=== PATIENT | female | born 1965 | race American Indian/Alaskan Native ===

== ENCOUNTER 2019-01-21 08:56 | Outpatient (CLI) | payer MEDICARE, OTHER ==
[2019-01-21 09:30] LABS: Hemoglobin 11.2 gm/dl (10.1-14.3); Mean Corpuscular HGB Conc 33 % (30-34); Mean Corpuscular Hemoglobin 27 pg (28-32); Mean Corpuscular Volume 80 fl (79-97); Platelet Count 181 K/mm3 (140-440); Red Blood Count 4.24 M/mm3 (3.65-5.03)
[2019-01-21 09:54] LABS: Alanine Aminotransferase 20 units/L (7-56); Albumin 3.3 g/dL (3.9-5); BUN/Creatinine Ratio 9; Blood Urea Nitrogen 7 mg/dL (7-17); Calcium 8.9 mg/dL (8.4-10.2); Chol/HDL Ratio 3.39 %; HDL Cholesterol 56 mg/dL (40-59); Hemolysis Index 2; LDL Cholesterol,Direct 129 mg/dL (50-130)
--- NOTE | 2019-01-21 12:01 | Cat Scan Report ---
CT CHEST WITH CONTRAST INDICATION : Lung abscess. TECHNIQUE: 100 mL of intravenous contrast administered. All CT scans at this location are performed using CT dose reduction for ALARA by means of automated exposure control. COMPARISON: None at this facility FINDINGS: The thyroid gland, tracheobronchial tree, esophagus, heart, pericardium and mediastinal ve ssels are unremarkable. There are a few borderline to mildly enlarged lymph nodes in the mediastinum. A 1.9 x 1.5 cm lymph node is identified along the right side of the distal esophagus. There are 3 ly mph nodes along the right heart border with the largest measuring 1.9 x 1.3 cm. There are 3 lymph nod es in the anterior mediastinum measuring up to 1.5 x 1.4 cm. The lungs are adequately aerated. No underlying parenchymal lung disease identified. There is mild li near scarring or atelectasis in the subpleural right upper lobe and right lobe lower lobe. No evidenc e for mass, infiltrate or abscess. No pleural fluid collection or pneumothorax. No suspicious bony le zackary or fracture is identified. Small Bochdalek hernia containing fat is noted in the posterior left hemidiaphragm. Limited images of the upper abdomen demonstrate a hypoplastic left hepatic lobe. There are 3 or 4 foc i of enhancement near the dome of the right hepatic lobe measuring up to 1 cm. I suspect these repres ent small cavernous hemangiomas although they are incompletely evaluated on this exam. Four-phase [place] er CT with contrast or MR abdomen with contrast could be obtained to further evaluate if needed. IMPRESSION: No evidence for lung abscess. Minor linear scarring or atelectasis in the right lung as described. Slightly suspicious mediastinal lymph nodes as outlined above of uncertain etiology. Consider follow- up. Neoplastic process cannot be excluded. Small foci of enhancement in this superior right hepatic lobe. See above. Signer Name: Jim Zuniga Jr, MD Signed: 01/21/2019 10:56 AM Workstation Name: [id number]
== END 2019-01-21 08:57 | disposition home or self-care (01) ==
LOC: CT 08:56
PROVIDERS: ATTEND Internal Medicine
DX: J98.11 Atelectasis (principal); K46.9 Unspecified abdominal hernia without obstruction or gangrene; R59.9 Enlarged lymph nodes, unspecified; R79.89 Other specified abnormal findings of blood chemistry
CPT/HCPCS: 36415; 36600; 71260; 80053; 80061; 82803; 84436; 84443; 85027; Q9967

== ENCOUNTER 2019-02-07 07:19 | Outpatient (CLI) | payer MEDICARE, OTHER ==
[2019-02-07 08:05] LABS: BUN/Creatinine Ratio 12; Blood Urea Nitrogen 11 mg/dL (7-17); Calcium 9.6 mg/dL (8.4-10.2); Hemolysis Index 20
--- NOTE | 2019-02-07 09:04 | Vascular Lab Report ---
DUPLEX DOPPLER LOWER EXTREMITY VEINS, BILATERAL INDICATION: Bilateral lower extremity swelling for 2 weeks.. TECHNIQUE: Duplex doppler imaging was performed through the veins of both lower extremities using venous arleth zackary and other maneuvers. COMPARISON: None available. FINDINGS: Right Common femoral vein: Negative. Right Superficial femoral vein: Negative. Right Popliteal vein: Negative. Right Calf veins: Negative. Left Common femoral vein: Negative. Left Superficial femoral vein: Negative. Left Popliteal vein: Negative. Left Calf veins: Negative. Additional findings: There is no evidence of a popliteal cyst or other significant abnormality. IMPRESSION: No sonographic evidence for DVT in either lower extremity. Signer Name: Sanjay Alamo MD Signed: 02/07/2019 9:00 AM Workstation Name: [id number]
--- NOTE | 2019-02-07 09:55 | Cat Scan Report ---
CTA CHEST WITH CONTRAST INDICATION : Chest pain and shortness of breath. TECHNIQUE: Axial imaging performed through the chest, with contrast bolus timing set to maximize opa cification of the pulmonary arteries. Sagittal and coronal reformatted images. 3-plane MIP reformatte d images were obtained. All CT scans at this location are performed using CT dose reduction for ALAR A by means of automated exposure control. Omnipaque 350 100 mL of intravenous contrast administered. COMPARISON: CT chest with contrast dated 01/21/2019 FINDINGS: Bolus: Contrast bolus is slightly limited. The central pulmonary arteries are adequately opacified. The distal, small pulmonary arteries are poorly opacified. PTE: A few small but slightly suspicious pulmonary arterial lung defects are identified in the right upper lobe on image 47, in the left upper lobe on image 58 and the left lower lobe on image 75. Sma ll bilateral pulmonary emboli cannot be excluded. Mediastinum: Heart size is within normal limits. No pericardial abnormality. The thoracic aorta is w ithin normal limits. Borderline to mildly enlarged mediastinal lymph nodes are again noted and uncha nged. Lungs: There is minor linear scarring or atelectasis in the right upper lobe and right lower lobe, o therwise, the lungs are clear. Small Bochdalek hernia containing fat on the left side is noted. No pl eural effusion or pneumothorax. Bones: Degenerative changes in the spine with nothing acute. Upper abdomen: Limited imaging of the upper abdomen shows nothing acute. IMPRESSION: Somewhat limited examination due to poor timing of the contrast bolus . Small bilateral pulmonary emb laron are suspected. Please see above. Linear scarring or atelectasis in the right lung. No change in the slightly suspicious mediastinal lymph nodes. The ordering physician, Dr. Johnson, was paged [phone] EST to be notified of these findings. Signer Name: Jim Zuniga Jr, MD Signed: 02/07/2019 9:50 AM Workstation Name: [id number]
--- NOTE | 2019-02-07 17:59 | History and Physical Report ---
History of Present Illness Date of examination: 02/07/19 Medications and Allergies Allergies Allergy/AdvReac Type Severity Reaction Status Date / Time banana Allergy Itching Verified 02/07/19 16:01 dipyridamole Allergy Rash Verified 02/07/19 16:01 [From Persantine] Sulfa (Sulfonamide Allergy Itching/JADE Verified 02/07/19 16:01 Antibiotics) H HEART DYE Allergy Rash Uncoded 02/07/19 13:42 Results - Labs CBC & Chem 7: 02/07/19 07:41 Labs: Laboratory Last Values 884.12 ng/mlDDU (0-234) H 02/07/19 07:41 Sodium 140 mmol/L (137-145) 02/07/19 07:41 Potassium 4.2 mmol/L (3.6-5.0) 02/07/19 07:41 Chloride 99.6 mmol/L (98-107) 02/07/19 07:41 Carbon Dioxide 28 mmol/L (22-30) 02/07/19 07:41 17 mmol/L 02/07/19 07:41 BUN 11 mg/dL (7-17) 02/07/19 07:41 0.9 mg/dL (0.7-1.2) 02/07/19 07:41 Estimated GFR > 60 ml/min 02/07/19 07:41 12 % 02/07/19 07:41 Glucose 147 mg/dL (65-100) H 02/07/19 07:41 Calcium 9.6 mg/dL (8.4-10.2) 02/07/19 07:41 - Imaging and Cardiology Imaging and Cardiology: CTA chest IMPRESSION: Somewhat limited examination due to poor timing of the contrast bolus . Small bilateral pulmonary emboli are suspected. Please see above. Linear scarring or atelectasis in the right lung. No change in the slightly suspicious mediastinal lymph nodes.
== END 2019-02-07 07:20 | disposition home or self-care (01) ==
LOC: CT 07:19
PROVIDERS: ATTEND Internal Medicine
DX: J98.11 Atelectasis (principal); Q79.0 Congenital diaphragmatic hernia; R22.43 Localized swelling, mass and lump, lower limb, bilateral; E03.9 Hypothyroidism, unspecified
CPT/HCPCS: 36415; 71275; 80048; 82164; 85379; 93970; Q9967

== ENCOUNTER 2019-02-07 13:40 | Inpatient (IN) | payer MEDICARE, OTHER ==
--- NOTE | 2019-02-07 14:49 | Emergency Department Report ---
ED Shortness of Breath HPI - General Chief Complaint: Dyspnea/Respdistress Stated Complaint: SENT Time Seen by Provider: 02/07/19 14:42 Source: patient Mode of arrival: Ambulatory Limitations: No Limitations - History of Present Illness Initial Comments: Patient is a 53-year-old female that presents to emergency room with complaints of a positive CTA for PE. Patient states short of breath for about a year and her dent remover order a CTA and it was done this morning at the outpatient center and she was called to come here for evaluation and treatment for a PE. MD Complaint: shortness of breath -: Gradual, year(s) Severity: severe Consistency: constant Improves With: rest Worsens With: exertion Associated Symptoms: denies other symptoms Treatments Prior to Arrival: none - Related Data Home Oxygen Therapy: No Allergies Allergy/AdvReac Type Severity Reaction Status Date / Time banana Allergy Itching Verified 02/07/19 16:01 dipyridamole Allergy Rash Verified 02/07/19 16:01 [From Persantine] Sulfa (Sulfonamide Allergy Itching/JADE Verified 02/07/19 16:01 Antibiotics) H HEART DYE Allergy Rash Uncoded 02/07/19 13:42 ED Review of Systems ROS: Stated complaint: SENT Other details as noted in HPI Constitutional: denies: chills, fever Eyes: denies: eye pain, eye discharge, vision change ENT: denies: ear pain, throat pain Respiratory: shortness of breath. denies: cough, wheezing Cardiovascular: dyspnea on exertion. denies: chest pain, palpitations Endocrine: no symptoms reported Gastrointestinal: denies: abdominal pain, nausea, diarrhea Genitourinary: denies: urgency, dysuria, discharge Musculoskeletal: denies: back pain, joint swelling, arthralgia Skin: denies: rash, lesions Neurological: denies: headache, weakness, paresthesias Psychiatric: denies: anxiety, depression Hematological/Lymphatic: denies: easy bleeding, easy bruising ED Past Medical Hx - Past Medical History Previous Medical History?: Yes Additional medical history: hypothyroidism - Surgical History Past Surgical History?: Yes Hx Cholecystectomy: Yes Additional Surgical History: partial hysterectomy - Family History Family history: no significant - Social History Smoking Status: Never Smoker Substance Use Type: None ED Physical Exam - General Limitations: No Limitations General appearance: alert, in no apparent distress - Head Head exam: Present: atraumatic, normocephalic - Eye Eye exam: Present: normal appearance - ENT ENT exam: Present: mucous membranes moist - Neck Neck exam: Present: normal inspection - Respiratory Respiratory exam: Present: normal lung sounds bilaterally. Absent: respiratory distress - Cardiovascular Cardiovascular Exam: Present: regular rate, normal rhythm. Absent: systolic murmur, diastolic murmur, rubs, gallop - GI/Abdominal GI/Abdominal exam: Present: soft, normal bowel sounds - Extremities Exam Extremities exam: Present: normal inspection - Back Exam Back exam: Present: normal inspection - Neurological Exam Neurological exam: Present: alert, oriented X3 - Psychiatric Psychiatric exam: Present: normal affect, normal mood - Skin Skin exam: Present: warm, dry, intact, normal color. Absent: rash ED Course Vital Signs 02/07/19 02/07/19 02/07/19 13:53 18:16 19:18 Temperature 98.7 F Pulse Rate 108 H 100 H 93 H Respiratory 20 19 22 Rate Blood Pressure 129/88 Blood Pressure 112/81 139/83 [Right] O2 Sat by Pulse 96 99 97 Oximetry - Reevaluation(s) Reevaluation #1: Discussed all results with patient. Patient will be admitted to the hospitalist service. Patient agrees with plan of care 02/07/19 15:54 Heparin drip ordered. 02/07/19 16:00 - Consultations Consultation #1: Hospitalist consulted for admission. Hospitalist to the patient and assumed care of patient. Bridging orders place. 02/07/19 15:54 ED Medical Decision Making - Lab Data Result diagrams: 02/07/19 16:13 02/07/19 14:59 - EKG Data -: EKG Interpreted by Nv EKG shows normal: sinus rhythm, axis, intervals, QRS complexes, ST-T waves Rate: normal - Radiology Data Radiology results: report reviewed CTA results. IMPRESSION: Somewhat limited examination due to poor timing of the contrast bolus . Small bilateral pulmonary emboli are suspected. Please see above. Linear scarring or atelectasis in the right lung. No change in the slightly suspicious mediastinal lymph nodes. - Medical Decision Making Patient is a 53-year-old female just emergency room for treatment of a PE. Patient had a CTA as an outpatient and her doctor sent her here for evaluation and treatment. Patient placed on a heparin drip. Patient's last unremarkable. - Differential Diagnosis PE. Shortness of breath. Critical Care Time: Yes Critical care attestation.: If time is entered above; I have spent that time in minutes in the direct care of this critically ill patient, excluding procedure time. Critical Care Time: 45 minutes ED Disposition Clinical Impression: SOB (shortness of breath) Pulmonary embolism Qualifiers: Pulmonary embolism type: unspecified Chronicity: acute Acute cor pulmonale presence: without acute cor pulmonale Qualified Code(s): I26.99 - Other pulmonary embolism without acute cor pulmonale Disposition: 09 OP ADMIT IP TO THIS HOSP Is pt being admited?: Yes Does the pt Need Aspirin: No Condition: Critical Time of Disposition: 15:56
[2019-02-07 15:12] LABS: Hematocrit 37.2 % (30.3-42.9); Hemoglobin 12.2 gm/dl (10.1-14.3); Mean Corpuscular HGB Conc 33 % (30-34); Mean Corpuscular Hemoglobin 27 pg (28-32); Mean Corpuscular Volume 81 fl (79-97); Platelet Count 239 K/mm3 (140-440); Red Blood Count 4.58 M/mm3 (3.65-5.03); Red Cell Distribution Width 18.7 % (13.2-15.2)
[2019-02-07 15:32] LABS: Creatine Kinase MB 1.7 ng/mL (0.0-4.0)
[2019-02-07 15:33] LABS: Alanine Aminotransferase 30 units/L (7-56); Albumin 3.7 g/dL (3.9-5); BUN/Creatinine Ratio 14; Blood Urea Nitrogen 11 mg/dL (7-17); Calcium 9.1 mg/dL (8.4-10.2); Hemolysis Index 89
[2019-02-07] MEDS ORDERED: HEPARIN 10,000 UNITS/10 ML IV ONE (15:57)
[2019-02-07 16:19] LABS: Hematocrit 37.5 % (30.3-42.9); Hemoglobin 12.3 gm/dl (10.1-14.3)
[2019-02-07 16:30] LABS: INR 1.09 (0.87-1.13)
[2019-02-07 16:31] LABS: Partial Thromboplastin Time 22.4 Sec. (24.2-36.6)
[2019-02-07] MEDS: HEPARIN/ 0.45% NACL-25,000 UNIT/500 ML 25,000 UNIT/500 ML BAG IV SCH (16:40)
[2019-02-07] MEDS ORDERED: FLEXERIL PO PRN (23:32)
--- NOTE | 2019-02-07 23:38 | History and Physical Report ---
History of Present Illness Date of examination: 02/07/19 Date of admission: 02/07/19 16:01 Chief complaint: Shortness of breath for 2 weeks History of present illness: 53-year-old female that presents to emergency room with complaints of a positive CTA for PE. Patient states short of breath for about a year and her framework developer order a CTA and it was done this morning at the outpatient center and she was called to come here for evaluation and treatment for a PE. Patient has been in shortness of breath for last couple weeks especially on exertion. No cough. No fever or chills. No recent travel. Past Medical History Previous Medical History?: Yes Additional medical history: hypothyroidism Surgical History Past Surgical History?: Yes Hx Cholecystectomy: Yes Additional Surgical History: partial hysterectomy Family History Family history: no significant Social History Smoking Status: Never Smoker Substance Use Type: None Review of Systems ROS: Stated complaint: DR SENT Other details as noted in HPI Constitutional: denies: chills, fever Eyes: denies: eye pain, eye discharge, vision change ENT: denies: ear pain, throat pain Respiratory: shortness of breath. denies: cough, wheezing Cardiovascular: dyspnea on exertion. denies: chest pain, palpitations Endocrine: no symptoms reported Gastrointestinal: denies: abdominal pain, nausea, diarrhea Genitourinary: denies: urgency, dysuria, discharge Musculoskeletal: denies: back pain, joint swelling, arthralgia Skin: denies: rash, lesions Neurological: denies: headache, weakness, paresthesias Psychiatric: denies: anxiety, depression Hematological/Lymphatic: denies: easy bleeding, easy bruising Medications and Allergies Allergies Allergy/AdvReac Type Severity Reaction Status Date / Time banana Allergy Itching Verified 02/07/19 16:01 dipyridamole Allergy Rash Verified 02/07/19 16:01 [From Persantine] Sulfa (Sulfonamide Allergy Itching/JADE Verified 02/07/19 16:01 Antibiotics) H HEART DYE Allergy Rash Uncoded 02/07/19 13:42 Home Medications Medication Instructions Recorded Confirmed Last Taken Type Cyclobenzaprine [Flexeril 10 MG 10 mg PO QHS 02/07/19 02/07/19 Unknown History TAB] Levothyroxine Sodium [Synthroid] 137 mcg PO QAM 02/07/19 02/07/19 Unknown History Active Meds: Active Medications Cyclobenzaprine HCl (Flexeril) 10 mg PO TID PRN PRN Reason: Muscle Spasm Heparin Sodium/Sodium Chloride (Heparin/ 0.45% Nacl-25,000 Unit/500 Ml) 25,000 unit in 500 mls @ 30 mls/hr IV TITR SHERYL; Protocol Last Admin: 02/07/19 16:40 Dose: 1,500 units/hr, 30 mls/hr Documented by: Exam - Constitutional Vitals: Temp Pulse Resp BP Pulse Ox 98.7 F 93 H 26 H 125/82 99 02/07/19 13:53 02/07/19 20:00 02/07/19 20:00 02/07/19 21:00 02/07/19 21:00 General appearance: Present: mild distress, well-nourished - EENT Eyes: Present: PERRL ENT: hearing intact, clear oral mucosa - Neck Neck: Present: supple, normal ROM - Respiratory Respiratory effort: normal Respiratory: bilateral: CTA - Cardiovascular Heart rate: 86 Rhythm: regular Heart Sounds: Present: S1 & S2. Absent: rub, click - Extremities Extremities: no ischemia, pulses intact, pulses symmetrical, No edema Peripheral Pulses: within normal limits - Abdominal General gastrointestinal: Present: soft, non-tender, non-distended, normal bowel sounds Female genitourinary: Present: normal - Rectal Rectal Exam: deferred - Integumentary Integumentary: Present: clear, warm, dry - Musculoskeletal Musculoskeletal: gait normal, strength equal bilaterally - Psychiatric Psychiatric: appropriate mood/affect, intact judgment & insight - Neurologic Neurologic: CNII-XII intact, moves all extremities - Allied Health Allied health notes reviewed: nursing, case management Results - Labs CBC & Chem 7: 02/07/19 16:13 02/07/19 14:59 Labs: Laboratory Last Values WBC 7.7 K/mm3 (4.5-11.0) 02/07/19 14:59 RBC 4.58 M/mm3 (3.65-5.03) 02/07/19 14:59 Hgb 12.3 gm/dl (10.1-14.3) 02/07/19 16:13 Hct 37.5 % (30.3-42.9) 02/07/19 16:13 MCV 81 fl (79-97) 02/07/19 14:59 MCH 27 pg (28-32) L 02/07/19 14:59 MCHC 33 % (30-34) 02/07/19 14:59 RDW 18.7 % (13.2-15.2) H 02/07/19 14:59 Plt Count 247 K/mm3 (140-440) 02/07/19 16:13 PT 13.8 Sec. (12.2-14.9) 02/07/19 16:13 INR 1.09 (0.87-1.13) 02/07/19 16:13 APTT 22.4 Sec. (24.2-36.6) L 02/07/19 16:13 Sodium 138 mmol/L (137-145) 02/07/19 14:59 Potassium 3.8 mmol/L (3.6-5.0) 02/07/19 14:59 Chloride 99.2 mmol/L (98-107) 02/07/19 14:59 Carbon Dioxide 26 mmol/L (22-30) 02/07/19 14:59 17 mmol/L 02/07/19 14:59 BUN 11 mg/dL (7-17) 02/07/19 14:59 0.8 mg/dL (0.7-1.2) 02/07/19 14:59 Estimated GFR > 60 ml/min 02/07/19 14:59 14 % 02/07/19 14:59 Glucose 109 mg/dL (65-100) H 02/07/19 14:59 Calcium 9.1 mg/dL (8.4-10.2) 02/07/19 14:59 0.30 mg/dL (0.1-1.2) 02/07/19 14:59 AST 54 units/L (5-40) H 02/07/19 14:59 ALT 30 units/L (7-56) 02/07/19 14:59 174 units/L (35-129) H 02/07/19 14:59 134 units/L (30-135) 02/07/19 14:59 CK-MB (CK-2) 1.7 ng/mL (0.0-4.0) 02/07/19 14:59 CK-MB (CK-2) Rel Index 1.2 (0-4) 02/07/19 14:59 < 0.010 ng/mL (0.00-0.029) 02/07/19 14:59 8.3 g/dL (6.3-8.2) H 02/07/19 14:59 3.7 g/dL (3.9-5) L 02/07/19 14:59 0.8 % 02/07/19 14:59 Short CBC 02/07/19 02/07/19 Range/Units 14:59 16:13 WBC 7.7 (4.5-11.0) K/mm3 Hgb 12.2 12.3 (10.1-14.3) gm/dl Hct 37.2 37.5 (30.3-42.9) % Plt Count 239 247 (140-440) K/mm3 BMP 02/07/19 14:59 Sodium 138 Potassium 3.8 Chloride 99.2 Carbon Dioxide 26 BUN 11 Creatinine 0.8 Glucose 109 H Calcium 9.1 Cardiac Enzymes 02/07/19 Range/Units 14:59 Total Creatine Kinase 134 (30-135) units/L CK-MB (CK-2) 1.7 (0.0-4.0) ng/mL Troponin T < 0.010 (0.00-0.029) ng/mL Liver Function 02/07/19 Range/Units 14:59 Total Bilirubin 0.30 (0.1-1.2) mg/dL AST 54 H (5-40) units/L ALT 30 (7-56) units/L Alkaline Phosphatase 174 H (35-129) units/L Albumin 3.7 L (3.9-5) g/dL - Imaging and Cardiology EKG: report reviewed (sinus rhythm heart rate of 95 per minute nonspecific IVCD nonspecific T-wave abnormalities) CT scan - chest: report reviewed Imaging and Cardiology: CT angiogram of the chest Bilateral pulmonary embolism IMPRESSION: Somewhat limited examination due to poor timing of the contrast bolus . Small bilateral pulmonary emboli are suspected. Please see above. Linear scarring or atelectasis in the right lung. No change in the slightly suspicious mediastinal lymph nodes. The ordering physician, Dr. Johnson, was paged [phone] EST to be notified of these findings. Assessment and Plan Advance Directives: Yes (full code) VTE prophylaxis?: Chemical Plan of care discussed with patient/family: Yes - Patient Problems (1) Pulmonary embolism Current Visit: Yes Status: Acute Qualifiers: Pulmonary embolism type: unspecified Chronicity: acute Acute cor pulmonale presence: without acute cor pulmonale Qualified Code(s): I26.99 - Other pulmonary embolism without acute cor pulmonale Plan to address problem: Patient initiated on IV heparin Primary team to decide on ELIQUIS or Coumadin (2) Hypothyroidism (acquired) Current Visit: Yes Status: Chronic (3) DVT prophylaxis Current Visit: Yes Status: Acute Plan to address problem: Patient on IV heparin and GI prophylaxis
--- NOTE | 2019-02-08 17:30 | Progress Note ---
Assessment and Plan Assessment and plan: Acute bilateral pulmonary embolism Started Heparin drip Consult Pulmonology Hypothyroidism Continue Synthroid Morbid obesity I counseled her on diet and exercise to lose weight full code status. History Interval history: Shortness of breath Hospitalist Physical - Physical exam Narrative exam: Gen: Not in acute distress, lying in bed, morbidly obese HEENT: Normocephalic, atraumatic Neck: supple, no JVD Heart: S1 and S2 reg, no murmurs, rubs or gallop Lungs: Clear to auscultation, no wheeze, no crackles Abd: soft, non tender, non distended, normal BS Ext: No edema, no clubbing, no cyanosis Neuro:Awake,Alert, Oriented X 3. No focal signs - Constitutional Vitals: Temp Pulse Resp BP Pulse Ox 97.5 F L 89 20 129/79 97 02/08/19 11:24 02/08/19 11:24 02/08/19 11:24 02/08/19 11:24 02/08/19 11:24 General appearance: Present: mild distress, well-nourished Results - Labs CBC & Chem 7: 02/07/19 16:13 02/07/19 14:59 Labs: Laboratory Last Values WBC 7.7 K/mm3 (4.5-11.0) 02/07/19 14:59 RBC 4.58 M/mm3 (3.65-5.03) 02/07/19 14:59 Hgb 12.3 gm/dl (10.1-14.3) 02/07/19 16:13 Hct 37.5 % (30.3-42.9) 02/07/19 16:13 MCV 81 fl (79-97) 02/07/19 14:59 MCH 27 pg (28-32) L 02/07/19 14:59 MCHC 33 % (30-34) 02/07/19 14:59 RDW 18.7 % (13.2-15.2) H 02/07/19 14:59 Plt Count 247 K/mm3 (140-440) 02/07/19 16:13 PT 13.8 Sec. (12.2-14.9) 02/07/19 16:13 INR 1.09 (0.87-1.13) 02/07/19 16:13 APTT 22.4 Sec. (24.2-36.6) L 02/07/19 16:13 Heparin Anti-Xa Level 0.41 U.I./ml (0.3-0.7) 02/08/19 15:29 Sodium 138 mmol/L (137-145) 02/07/19 14:59 Potassium 3.8 mmol/L (3.6-5.0) 02/07/19 14:59 Chloride 99.2 mmol/L (98-107) 02/07/19 14:59 Carbon Dioxide 26 mmol/L (22-30) 02/07/19 14:59 17 mmol/L 02/07/19 14:59 BUN 11 mg/dL (7-17) 02/07/19 14:59 0.8 mg/dL (0.7-1.2) 02/07/19 14:59 Estimated GFR > 60 ml/min 02/07/19 14:59 14 % 02/07/19 14:59 Glucose 109 mg/dL (65-100) H 02/07/19 14:59 Calcium 9.1 mg/dL (8.4-10.2) 02/07/19 14:59 0.30 mg/dL (0.1-1.2) 02/07/19 14:59 AST 54 units/L (5-40) H 02/07/19 14:59 ALT 30 units/L (7-56) 02/07/19 14:59 174 units/L (35-129) H 02/07/19 14:59 134 units/L (30-135) 02/07/19 14:59 CK-MB (CK-2) 1.7 ng/mL (0.0-4.0) 02/07/19 14:59 CK-MB (CK-2) Rel Index 1.2 (0-4) 02/07/19 14:59 < 0.010 ng/mL (0.00-0.029) 02/07/19 14:59 8.3 g/dL (6.3-8.2) H 02/07/19 14:59 3.7 g/dL (3.9-5) L 02/07/19 14:59 0.8 % 02/07/19 14:59 Active Medications - Current Medications Current Medications: Generic Name Dose Route Start Last Admin Trade Name Freq PRN Reason Stop Dose Admin Cyclobenzaprine HCl 10 mg 02/07/19 23:32 02/08/19 00:20 Flexeril PO 10 mg TID PRN Administration Muscle Spasm Heparin Sodium/Sodium Chloride 25,000 unit in 500 mls @ 30 mls/hr 02/07/19 16:30 02/08/19 09:06 Heparin/ 0.45% Nacl-25,000 Unit/500 Ml IV 1,200 units/hr TITR SHERYL 24 mls/hr Titration Protocol 1,500 UNITS/HR
[2019-02-09 04:10] LABS: Hematocrit 35.5 % (30.3-42.9); Hemoglobin 11.5 gm/dl (10.1-14.3)
[2019-02-09] MEDS ORDERED: NON-FORMULARY (Levothyroxine Sodium [Synthroid] 137 MCG) PO SCH (11:00)
--- NOTE | 2019-02-09 12:37 | Progress Note ---
Assessment and Plan Assessment and plan: Acute bilateral pulmonary embolism Continue Heparin drip oxygen supplement Consulted Pulmonology Hypothyroidism Continue Synthroid Morbid obesity I counseled her on diet and exercise to lose weight full code status. History Interval history: Shortness of breath Hospitalist Physical - Physical exam Narrative exam: Gen: Not in acute distress, lying in bed, morbidly obese HEENT: Normocephalic, atraumatic Neck: supple, no JVD Heart: S1 and S2 reg, no murmurs, rubs or gallop Lungs: Clear to auscultation, no wheeze, no crackles Abd: soft, non tender, non distended, normal BS Ext: No edema, no clubbing, no cyanosis Neuro:Awake,Alert, Oriented X 3. No focal signs - Constitutional Vitals: Temp Pulse Resp BP Pulse Ox 98.0 F 89 16 107/63 95 02/09/19 11:37 02/09/19 11:37 02/09/19 11:37 02/09/19 11:37 02/09/19 11:37 General appearance: Present: obese Results - Labs CBC & Chem 7: 02/09/19 03:43 02/07/19 14:59 Labs: Laboratory Last Values WBC 7.7 K/mm3 (4.5-11.0) 02/07/19 14:59 RBC 4.58 M/mm3 (3.65-5.03) 02/07/19 14:59 Hgb 11.5 gm/dl (10.1-14.3) 02/09/19 03:43 Hct 35.5 % (30.3-42.9) 02/09/19 03:43 MCV 81 fl (79-97) 02/07/19 14:59 MCH 27 pg (28-32) L 02/07/19 14:59 MCHC 33 % (30-34) 02/07/19 14:59 RDW 18.7 % (13.2-15.2) H 02/07/19 14:59 Plt Count 186 K/mm3 (140-440) 02/09/19 03:43 PT 13.8 Sec. (12.2-14.9) 02/07/19 16:13 INR 1.09 (0.87-1.13) 02/07/19 16:13 APTT 22.4 Sec. (24.2-36.6) L 02/07/19 16:13 Heparin Anti-Xa Level 0.41 U.I./ml (0.3-0.7) 02/08/19 15:29 Sodium 138 mmol/L (137-145) 02/07/19 14:59 Potassium 3.8 mmol/L (3.6-5.0) 02/07/19 14:59 Chloride 99.2 mmol/L (98-107) 02/07/19 14:59 Carbon Dioxide 26 mmol/L (22-30) 02/07/19 14:59 17 mmol/L 02/07/19 14:59 BUN 11 mg/dL (7-17) 02/07/19 14:59 0.8 mg/dL (0.7-1.2) 02/07/19 14:59 Estimated GFR > 60 ml/min 02/07/19 14:59 14 % 02/07/19 14:59 Glucose 109 mg/dL (65-100) H 02/07/19 14:59 Calcium 9.1 mg/dL (8.4-10.2) 02/07/19 14:59 0.30 mg/dL (0.1-1.2) 02/07/19 14:59 AST 54 units/L (5-40) H 02/07/19 14:59 ALT 30 units/L (7-56) 02/07/19 14:59 174 units/L (35-129) H 02/07/19 14:59 134 units/L (30-135) 02/07/19 14:59 CK-MB (CK-2) 1.7 ng/mL (0.0-4.0) 02/07/19 14:59 CK-MB (CK-2) Rel Index 1.2 (0-4) 02/07/19 14:59 < 0.010 ng/mL (0.00-0.029) 02/07/19 14:59 8.3 g/dL (6.3-8.2) H 02/07/19 14:59 3.7 g/dL (3.9-5) L 02/07/19 14:59 0.8 % 02/07/19 14:59 Active Medications - Current Medications Current Medications: Generic Name Dose Route Start Last Admin Trade Name Freq PRN Reason Stop Dose Admin Cyclobenzaprine HCl 10 mg 02/07/19 23:32 02/08/19 00:20 Flexeril PO 10 mg TID PRN Administration Muscle Spasm Cyclobenzaprine HCl 20 mg 02/09/19 22:00 Flexeril PO QHS [facility] Heparin Sodium/Sodium Chloride 25,000 unit in 500 mls @ 30 mls/hr 02/07/19 16:30 02/08/19 17:42 Heparin/ 0.45% Nacl-25,000 Unit/500 Ml IV Infused TITR [facility] Titration Protocol 1,500 UNITS/HR Levothyroxine Sodium 112 mcg 02/10/19 06:00 Synthroid PO DAILY@0600 [facility] Levothyroxine Sodium 25 mcg 02/10/19 06:00 Synthroid PO DAILY@0600 [facility]
[2019-02-09] MEDS: HEPARIN/ 0.45% NACL-25,000 UNIT/500 ML 25,000 UNIT/500 ML BAG IV SCH (17:22)
--- NOTE | 2019-02-09 19:33 | Consultation ---
History of Present Illness Consult date: 02/09/19 Requesting physician: LEANN GARCÍA Reason for consult: pulmonary embolism History of present illness: 53-year-old female that presents to emergency room with complaints of a positive CTA for PE. Patient states short of breath for about a year and her home maker order a CTA and it was done this morning at the outpatient center and she was called to come here for evaluation and treatment for a PE. Patient has been in shortness of breath for last couple weeks especially on exertion. No cough. No fever or chills. No recent travel. Patient was seen and examined. Vitals, labs, medications, chart and imaging reviewed. She is sitting up in bed, on a heparin infusion and not in any respiratory distress. She has as a long history dating 2006 which she wanted to discuss and explore. ED Review of Systems ROS: Stated complaint: DR SENT Other details as noted in HPI Constitutional: denies: chills, fever Eyes: denies: eye pain, eye discharge, vision change ENT: denies: ear pain, throat pain Respiratory: shortness of breath. denies: cough, wheezing Cardiovascular: dyspnea on exertion. denies: chest pain, palpitations Endocrine: no symptoms reported Gastrointestinal: denies: abdominal pain, nausea, diarrhea Genitourinary: denies: urgency, dysuria, discharge Musculoskeletal: denies: back pain, joint swelling, arthralgia Skin: denies: rash, lesions Neurological: denies: headache, weakness, paresthesias Psychiatric: denies: anxiety, depression Hematological/Lymphatic: denies: easy bleeding, easy bruising Past Medical History Previous Medical History?: Yes Additional medical history: hypothyroidism Surgical History Past Surgical History?: Yes Hx Cholecystectomy: Yes Additional Surgical History: partial hysterectomy Family History Family history: no significant Social History Smoking Status: Never Smoker Substance Use Type: None Medications and Allergies Allergies Allergy/AdvReac Type Severity Reaction Status Date / Time banana Allergy Itching Verified 02/07/19 16:01 dipyridamole Allergy Rash Verified 02/07/19 16:01 [From Persantine] Sulfa (Sulfonamide Allergy Itching/JADE Verified 02/07/19 16:01 Antibiotics) H HEART DYE Allergy Rash Uncoded 02/07/19 13:42 Home Medications Medication Instructions Recorded Confirmed Last Taken Type Cyclobenzaprine [Flexeril 10 MG 20 mg PO QHS 02/07/19 02/09/19 Unknown History TAB] Levothyroxine Sodium [Synthroid] 137 mcg PO QAM 02/07/19 02/07/19 Unknown History Active Meds: Active Medications Cyclobenzaprine HCl (Flexeril) 10 mg PO TID PRN PRN Reason: Muscle Spasm Last Admin: 02/08/19 00:20 Dose: 10 mg Documented by: Cyclobenzaprine HCl (Flexeril) 20 mg PO QHS [facility] Heparin Sodium/Sodium Chloride (Heparin/ 0.45% Nacl-25,000 Unit/500 Ml) 25,000 unit in 500 mls @ 30 mls/hr IV TITR SHERY[facility]; Protocol Last Admin: 02/09/19 17:22 Dose: 1,200 units/hr, 24 mls/hr Documented by: Levothyroxine Sodium (Synthroid) 112 mcg PO DAILY@0600 [facility] Levothyroxine Sodium (Synthroid) 25 mcg PO DAILY@0600 [facility] Physical Examination Vital signs: Vital Signs Temp Pulse Resp BP Pulse Ox 98.7 F 108 H 20 112/81 96 02/07/19 13:53 02/07/19 13:53 02/07/19 13:53 02/07/19 13:53 02/07/19 13:53 General appearance: no acute distress, alert Eyes: non-icteric ENT: oropharynx moist Neck: supple, no lymphadenopathy, no JVD, other (large neck, mallampatti score 4) Effort: normal Ascultation: Bilateral: clear, diminished breath sounds Cardiovascular: regular rate and rhythm, other (S1,S2, no murmurs) Gastrointestinal: normoactive bowel sounds Integumentary: normal Extremities: no cyanosis, no edema, pulses normal, no ischemia or petechiae normal mental status, non-focal exam, pupils equal and round, motor strength normal and mood appropriate, anxious Results - Laboratory Findings CBC and BMP: 02/09/19 03:43 02/07/19 14:59 PT/INR, D-dimer PT 13.8 Sec. (12.2-14.9) 02/07/19 16:13 INR 1.09 (0.87-1.13) 02/07/19 16:13 Abnormal lab findings: Abnormal Labs 02/07/19 02/07/19 02/07/19 14:59 14:59 16:13 MCH 27 L RDW 18.7 H APTT 22.4 L Heparin Anti-Xa Level Glucose 109 H AST 54 H Alkaline Phosphatase 174 H Total Protein 8.3 H Albumin 3.7 L 02/08/19 02/08/19 00:07 07:45 MCH RDW APTT Heparin Anti-Xa Level 0.87 H 0.77 H Glucose AST Alkaline Phosphatase Total Protein Albumin - Diagnostic Findings Chest x-ray: image reviewed CT scan - chest: report reviewed (Small bilateral PEs suspected), image reviewed (Difficult to properly identify the PEs) U/S of Legs: report reviewed (No DVTs) Assessment and Plan Chest pain with possible PEs reported on CTA Morbid obesity Sarcoidosis- s/p biopsy in early - non-caseating granulomas seen on pathology -Continue with therapeutic heparin infusion for now -Agree with echocardiography -Biomarkers are not elevated -Get V/Q scan -OK to transition to oral anticoagulation -Will need age appropriate cancer screening -Recommend hematology follow up and work up as an outpatient -OK for discharge planning on NOACs once V/Q and Echocardiogram are done with cl ose 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 García Thank you for the consult
[2019-02-09] MEDS ORDERED: FLEXERIL PO SCH ×2 (22:00)
[2019-02-10] MEDS: HEPARIN/ 0.45% NACL-25,000 UNIT/500 ML 25,000 UNIT/500 ML BAG IV SCH (02:11)
[2019-02-10] MEDS ORDERED: SYNTHROID PO SCH ×2 (06:00)
--- NOTE | 2019-02-10 11:34 | XRay Report ---
CHEST 2 VIEWS INDICATION / CLINICAL INFORMATION: Chest pain. COMPARISON: Chest CT on 02/07/2019 FINDINGS: SUPPORT DEVICES: None. HEART / MEDIASTINUM: No significant abnormality. LUNGS / PLEURA: Stable linear scarring in the right lower lobe. No acute consolidation or pleural eff usion. No pneumothorax. ADDITIONAL FINDINGS: No significant additional findings. IMPRESSION: 1. No acute findings. Signer Name: Winston Pearson MD Signed: 02/10/2019 11:29 AM Workstation Name: [id number]
--- NOTE | 2019-02-10 11:40 | Nuclear Medicine Report ---
VENTILATION PERFUSION PULMONARY SCINTIGRAPHY HISTORY: Shortness of breath. Small PE suspected on CTA. COMPARISON: Same day chest radiograph and 02/07/2019 CTA. TECHNIQUE: Radiopharmaceutical was inhaled. Tc-99m-MAA was then injected. Ventilation and perfusion images were acquired. RADIOPHARMACEUTICAL: 15 mCi of Xe-133 inhaled 5 mCi of Tc-99m-MAA injected FINDINGS: VENTILATION: No significant air trapping or defect. PERFUSION: No significant segmental or non-segmental defect. Additional Findings: None. IMPRESSION: 1. Low probability for pulmonary embolism. Signer Name: Jeanmarie Roberts MD Signed: 02/10/2019 11:35 AM Workstation Name: [id number]
[2019-02-10 13:41] VITALS: BP 155/82
--- NOTE | 2019-02-10 17:46 | Discharge Summary ---
Providers - Providers Date of Admission: 02/07/19 16:01 Date of discharge: 02/10/19 Attending physician: LEANN GARCÍA 02/08/19 08:01 Consult to Physician [CONS] Routine Comment: Consulting Provider: ANA TRAVIS Physician Instructions: Reason For Exam: bilateral pulmonary embolism [facility] Condition: Fair Disposition: DC-01 TO HOME OR SELFCARE Core Measure Documentation - Palliative Care Palliative Care/ Comfort Measures: Not Applicable - Core Measures Any of the following diagnoses?: DVT/PE - VTE Discharge Requirements Deep Vein Thrombosis/Pulmonary Embolism Present on Admission: Yes Has pt received <5 days of overlap therapy or INR<2.0: Yes Anticoagulant overlap therapy prescribed at discharge: No Contraindication No Overlap Therapy order at DC: Not Indicated (Eliquis) Exam - Constitutional Vitals: Temp Pulse Resp BP Pulse Ox 98.2 F 90 20 155/82 97 02/10/19 12:27 02/10/19 12:27 02/10/19 12:27 02/10/19 12:27 02/10/19 12:27 Plan Activity: advance as tolerated Diet: low fat, low cholesterol, low salt Additional Instructions: 1.Follow up with PCP in 1 week. 2.Follow up with Dr. Enciso, Pulmonology in 1 week [facility] [Primary Care Provider] - 3-5 Days
--- NOTE | 2019-02-10 18:20 | Progress Note ---
Assessment and Plan Patient awake. Resting on room air. No acute respiratory distress. O2 saturation 97% on room air. No complaint of chest pain or shortness of breath. Patients Angio CT reported to me there are small subsegmental pulmonary emboli. Called the patient to go to emergency room for admission. Patient came to emergency room and patient admitted. Patient started on I/V Heparin. Subsequently obtained V/Q scan reported low probability for pulmonary emboli. Patient morbidly Obese. Risk high for pulmonary emboli. Patient discharged on Eliquis. - Patient Problems (1) Pulmonary embolism Current Visit: Yes Status: Acute Qualifiers: Pulmonary embolism type: unspecified Chronicity: acute Acute cor pulmonale presence: without acute cor pulmonale Qualified Code(s): I26.99 - Other pulmonary embolism without acute cor pulmonale Plan to address problem: Patient treated with I/V Heparin. Discharging on Eliquis. (2) SOB (shortness of breath) Current Visit: Yes Status: Acute Plan to address problem: Improved after placing her on I/V heparin. (3) Hypothyroidism (acquired) Current Visit: Yes Status: Chronic Plan to address problem: Patient is on Levothyroxine. Subjective Date of service: 02/10/19 Interval history: Patient awake. Resting on room air. No acute respiratory distress. O2 saturation 97% on room air. No complaint of chest pain or shortness of breath. Patients Angio CT reported to me there are small subsegmental pulmonary emboli. Called the patient to go to emergency room for admission. Patient came to emergency room and patient admitted. Patient started on I/V Heparin. Subsequently obtained V/Q scan reported low probability for pulmonary emboli. Patient morbidly Obese. Risk high for pulmonary emboli. Patient discharged on Eliquis. Objective Vital Signs - 12hr 02/10/19 12:27 Temperature 98.2 F Pulse Rate 90 Respiratory 20 Rate Blood Pressure 155/82 O2 Sat by Pulse 97 Oximetry Constitutional: no acute distress, alert Eyes: non-icteric ENT: oropharynx moist Neck: supple, no lymphadenopathy, no JVD, other (large neck, mallampatti score 4) Effort: normal Ascultation: Bilateral: diminished breath sounds Cardiovascular: regular rate and rhythm, other (S1,S2, no murmurs) Gastrointestinal: normoactive bowel sounds Integumentary: normal Extremities: no cyanosis, no edema, pulses normal, no ischemia or petechiae Neurologic: normal mental status, non-focal exam, pupils equal and round, motor strength normal and Psychiatric: mood appropriate, anxious CBC and BMP: 02/09/19 03:43 02/07/19 14:59 ABG, PT/INR, D-dimer: PT/INR, D-dimer PT 13.8 Sec. (12.2-14.9) 02/07/19 16:13 INR 1.09 (0.87-1.13) 02/07/19 16:13 Abnormal lab findings: Abnormal Labs 02/07/19 02/07/19 02/07/19 14:59 14:59 16:13 MCH 27 L RDW 18.7 H APTT 22.4 L Heparin Anti-Xa Level Glucose 109 H AST 54 H Alkaline Phosphatase 174 H Total Protein 8.3 H Albumin 3.7 L 02/08/19 02/08/19 00:07 07:45 MCH RDW APTT Heparin Anti-Xa Level 0.87 H 0.77 H Glucose AST Alkaline Phosphatase Total Protein Albumin Chest x-ray: report reviewed (Reported no acute findings.), image reviewed Additional Studies: V/Q scan done on 02/10/19 V/Q scan reported low probability for pulmonary emboli.
== END 2019-02-10 19:10 | disposition home or self-care (01) | DRG 176 ==
LOC: ED 13:40 → 3A 16:01
PROVIDERS: ADMIT Internal Medicine; ATTEND Internal Medicine
DX: I26.99 Other pulmonary embolism without acute cor pulmonale (principal); Z68.43 Body mass index [BMI] 50.0-59.9, adult; E03.9 Hypothyroidism, unspecified; E66.01 Morbid (severe) obesity due to excess calories; Z71.3 Dietary counseling and surveillance; Z88.1 Allergy status to other antibiotic agents; Z91.041 Radiographic dye allergy status; Z88.2 Allergy status to sulfonamides; Z91.018 Allergy to other foods; Z90.711 Acquired absence of uterus with remaining cervical stump
CPT/HCPCS: 36415; 71046; 78582; 80053; 82550; 82553; 84484; 85014; 85018; 85027; 85049; 85520; 85610; 85730; 93005; 93010; 93306; G0378; A9540; A9558; J1644

== ENCOUNTER 2019-05-02 08:27 | Outpatient (CLI) | payer MEDICARE, OTHER ==
[2019-05-02 09:17] LABS: Blood Urea Nitrogen 8 mg/dL (7-17)
== END 2019-05-02 08:28 | disposition home or self-care (01) ==
LOC: CT 08:27
PROVIDERS: ATTEND Radiology Diagnostic Radiology
DX: K76.9 Liver disease, unspecified (principal)
CPT/HCPCS: 36415; 82565; 84520

== ENCOUNTER 2019-05-09 06:09 | Day surgery (SDC) | payer MEDICARE, OTHER ==
[2019-05-09 06:54] VITALS: BP 160/83
[2019-05-09 06:59] LABS: Hematocrit 34.7 % (30.3-42.9); Hemoglobin 11.4 gm/dl (10.1-14.3); Mean Corpuscular HGB Conc 33 % (30-34); Mean Corpuscular Volume 77 fl (79-97); Platelet Count 173 K/mm3 (140-440); Red Blood Count 4.52 M/mm3 (3.65-5.03); Red Cell Distribution Width 17.3 % (13.2-15.2)
[2019-05-09 07:10] LABS: BUN/Creatinine Ratio 17; Blood Urea Nitrogen 12 mg/dL (7-17); Calcium 9.3 mg/dL (8.4-10.2); Hemolysis Index 2; INR 1.14 (0.87-1.13)
[2019-05-09 07:11] LABS: Partial Thromboplastin Time 35.9 Sec. (24.2-36.6)
[2019-05-09] MEDS ORDERED: HEPARIN/NS 5000 UNIT/500ML 500 ML IR ONE (09:02)
[2019-05-09] MEDS ORDERED: LIDOCAINE (2%) 20 MG/1 ML VIAL 20 ML MDV INFILTRATI ONE (09:02)
--- NOTE | 2019-05-09 09:02 | Short Stay Summary ---
Short Stay Documentation Date of service: 05/09/19 - History H&P: obtained from office - Allergies and Medications Current Medications: Allergies banana Allergy (Verified 02/07/19 16:01) Itching dipyridamole [From Persantine] Allergy (Verified 02/07/19 16:01) Rash persantine thallium Sulfa (Sulfonamide Antibiotics) Allergy (Verified 02/07/19 16:01) Itching/RASH HEART DYE Allergy (Uncoded 02/07/19 13:42) Rash Home Medications Medication Instructions Recorded Confirmed Last Taken Type Levothyroxine Sodium [Synthroid] 137 mcg PO QAM 02/07/19 05/09/19 05/08/19 History 137 mcg Albuterol Sulfate [Proair 90 mcg IH Q4H PRN #1 pump 02/10/19 05/09/19 05/08/19 Rx Respiclick] 1 puff Apixaban [Eliquis] 5 mg PO BID 05/09/19 05/09/19 05/08/19 History 5 mg Multivit-Min/Iron Fum/Folic AC 1 tab PO DAILY 05/09/19 05/09/19 05/08/19 History [Iavnr-Vtoqluw-Bwmdepvc Tablet] 1 tab hydroCHLOROthiazide 25 mg PO PRN PRN 05/09/19 05/09/19 Unknown History [Hydrochlorothiazide] - Brief post op/procedure progress note Date of procedure: 05/09/19 Pre-op diagnosis: Celiac agenesis Post-op diagnosis: same Procedure: US and fluoro guided PICC Anesthesia: local Surgeon: SUZANNE RO Estimated blood loss: none Pathology: none Condition: stable - Disposition Condition at discharge: Good Disposition: DC-01 TO HOME OR SELFCARE Short Stay Discharge Plan Activity: advance as tolerated Weight Bearing Status: Weight Bear as Tolerated Diet: regular Wound: keep clean and dry, per your surgeon's advice Follow up with: MONTY DAI MD [Primary Care Provider] - 7 Days
--- NOTE | 2019-05-09 09:05 | Operative Report ---
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 The patient was brought to the angiographic suite and placed in supine position on the examination table. Initial ultrasound evaluation of her right arm demonstrated a patent right radial vein. The patient's right arm was prepped and draped in the usual sterile fashion. 1% lidocaine was used for anesthesia. Under ultrasound guidance, the right brachial vein was cannulated using a 7 cm 21-gauge needle. A 0.018 guidewire was advanced centrally under fluoroscopy. The guidewire was advanced into the IVC to document intravenous positioning and for anchoring. The needle was removed and a 5.5 Fijian peel-away sheath placed over the guidewire. The trocar was removed. The PICC was cut to length and inserted through the peel-away sheath. The tip of the PICC was placed in the proximal right atrium. Both ports returned nonpulsatile blood and flushed and aspirated easily. The PICC was securely fastened to the patient's arm using a StatLock device and a sterile dressing applied. The patient tolerated the procedure well. There were no immediate post procedure complications. Conscious sedation was not utilized. Continuous cardiopulmonary monitoring utilized. Impression: Ultrasound and fluoroscopic guided PICC placement via the right brachial vein
--- NOTE | 2019-05-09 10:42 | Cat Scan Report ---
CTA ABDOMEN AND PELVIS HISTORY: Liver disease COMPARISON: CTA chest dated 02/07/2019. No previous CTA of the abdomen. TECHNIQUE: Noncontrast CT abdomen obtained. Routine postcontrast CT angiography of the abdomen and p gerard performed. Multiplanar/MIP/3D reformats were post-processed. CONTRAST: 100 ml of Omnipaque 350 FINDINGS: CTA ABDOMEN: Abdominal Aorta: No significant abnormality. Celiac Artery: There is severe stenosis at the origin of the celiac axis estimated at greater than 90 %. There is poststenotic dilatation in the celiac trunk. Distal branches of the celiac artery appear widely patent with no significant stenosis. Superior Mesenteric Artery: No significant abnormality. Renal Arteries: Right: No significant abnormality. Left: No significant abnormality. Inferior Mesenteric Artery: No significant abnormality. CTA PELVIS: RIGHT: Common Iliac Artery: No significant abnormality. Internal Iliac Artery: No significant abnormality. External Iliac Artery: No significant abnormality. LEFT: Common Iliac Artery: No significant abnormality. Internal Iliac Artery: No significant abnormality. External Iliac Artery: No significant abnormality. 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 The right hepatic lobe is unrem arkable. No obvious parenchymal liver disease. Cholecystectomy has been performed. The spleen measure s 12 cm. There is mild fatty atrophy of the pancreas. The adrenal glands, kidneys, renal collecting s ystems and bowel loops are unremarkable. Normal appendix. Osseous Structures: No significant abnormality. 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 In retrospect this appear s unchanged from the CTA chest dated 02/07/2019. The aorta, SMA and JONH are widely patent with no dise ase. Signer Name: Jim Zuniga Jr, MD Signed: 05/09/2019 10:37 AM Workstation Name: [id number]
== END 2019-05-09 10:00 | disposition home or self-care (01) ==
LOC: CATHLABREC 06:09
PROVIDERS: ATTEND Radiology Diagnostic Radiology
DX: I87.1 Compression of vein (principal)
CPT/HCPCS: 36415; 36569; 36573; 74174; 76937; 77001; 80048; 85027; 85610; 85730; C1751; J1644; Q9967

== ENCOUNTER 2019-08-07 06:08 | Day surgery (SDC) | payer MEDICARE, OTHER ==
[2019-08-07] MEDS ORDERED: SODIUM CHLORIDE 0.9% 500 ML 500 ML IV SCH (07:00)
[2019-08-07 07:29] LABS: Hematocrit 33.5 % (30.3-42.9); Hemoglobin 10.8 gm/dl (10.1-14.3); Mean Corpuscular HGB Conc 32 % (30-34); Mean Corpuscular Volume 78 fl (79-97); Platelet Count 173 K/mm3 (140-440); Red Blood Count 4.33 M/mm3 (3.65-5.03); Red Cell Distribution Width 17.1 % (13.2-15.2)
[2019-08-07 07:39] LABS: INR 1.32 (0.87-1.13)
[2019-08-07 07:40] LABS: Partial Thromboplastin Time 35.2 Sec. (24.2-36.6)
[2019-08-07 07:41] LABS: BUN/Creatinine Ratio 15; Blood Urea Nitrogen 12 mg/dL (7-17); Calcium 9.5 mg/dL (8.4-10.2); Hemolysis Index 1
== END 2019-08-07 08:30 | disposition home or self-care (01) ==
LOC: CATHLABREC 06:08
PROVIDERS: ATTEND Radiology Diagnostic Radiology
DX: K55.1 Chronic vascular disorders of intestine (principal); E03.9 Hypothyroidism, unspecified; E66.01 Morbid (severe) obesity due to excess calories; I50.9 Heart failure, unspecified; Z53.8 Procedure and treatment not carried out for other reasons; Z79.899 Other long term (current) drug therapy; Z88.2 Allergy status to sulfonamides; Z88.8 Allergy status to other drugs, medicaments and biological substances; Z90.49 Acquired absence of other specified parts of digestive tract; Z90.710 Acquired absence of both cervix and uterus; Z68.41 Body mass index [BMI] 40.0-44.9, adult; Z98.890 Other specified postprocedural states; Z86.2 Personal history of diseases of the blood and blood-forming organs and certain disorders involving the immune mechanism
CPT/HCPCS: 36415; 80048; 85027; 85610; 85730

== ENCOUNTER 2019-08-28 06:07 | Day surgery (SDC) | payer MEDICARE, OTHER ==
[2019-08-28] MEDS ORDERED: SODIUM CHLORIDE 0.9% 500 ML 500 ML IV SCH (07:00)
[2019-08-28 07:47] LABS: INR 1.02 (0.87-1.13)
[2019-08-28 07:48] LABS: Partial Thromboplastin Time 27.9 Sec. (24.2-36.6)
[2019-08-28 07:50] LABS: BUN/Creatinine Ratio 16; Blood Urea Nitrogen 13 mg/dL (7-17); Hemolysis Index 4
[2019-08-28 08:00] LABS: Basophils # (Auto) 0.1 K/mm3 (0.0-0.1); Basophils % (Auto) 0.8 % (0.0-1.8); Eosinophils # (Auto) 0.3 K/mm3 (0.0-0.4); Eosinophils % (Auto) 5.1 % (0.0-4.3); Hematocrit 33.9 % (30.3-42.9); Lymphocytes # (Auto) 2.2 K/mm3 (1.2-5.4); Lymphocytes % (Auto) 32.9 % (13.4-35.0); Mean Corpuscular HGB Conc 32 % (30-34); Mean Corpuscular Volume 78 fl (79-97); Monocytes # (Auto) 0.5 K/mm3 (0.0-0.8); Monocytes % (Auto) 7.9 % (0.0-7.3); Platelet Count 162 K/mm3 (140-440); Red Blood Count 4.36 M/mm3 (3.65-5.03); Red Cell Distribution Width 16.4 % (13.2-15.2)
--- NOTE | 2019-08-28 08:46 | Short Stay Summary ---
Short Stay Documentation Date of service: 08/28/19 - History Principal diagnosis: Celiac artery occlusion/stenosis Past Medical History: other (be;iac artery stenosis, left hepatic lobe atrophy) Past Surgical History: cholecystectomy Social history: no significant social history - Allergies and Medications Current Medications: Allergies banana Allergy (Verified 02/07/19 16:01) Itching dipyridamole [From Persantine] Allergy (Verified 02/07/19 16:01) Rash persantine thallium Sulfa (Sulfonamide Antibiotics) Allergy (Verified 02/07/19 16:01) Itching/RASH HEART DYE Allergy (Uncoded 02/07/19 13:42) Rash Home Medications Medication Instructions Recorded Confirmed Last Taken Type Levothyroxine Sodium [Synthroid] 137 mcg PO QAM 02/07/19 05/09/19 05/08/19 History 137 mcg Albuterol Sulfate [Proair 90 mcg IH Q4H PRN #1 pump 02/10/19 05/09/19 05/08/19 Rx Respiclick] 1 puff Apixaban [Eliquis] 5 mg PO BID 05/09/19 05/09/19 05/08/19 History 5 mg Multivit-Min/Iron Fum/Folic AC 1 tab PO DAILY 05/09/19 05/09/19 05/08/19 History [[place]abo-Ngtidaa-Pwtnrkkz Tablet] 1 tab hydroCHLOROthiazide 25 mg PO PRN PRN 05/09/19 05/09/19 Unknown History [Hydrochlorothiazide] Active Medications Sodium Chloride (Nacl 0.9% 500 Ml) 500 mls @ 50 mls/hr IV DIRECT SHERYL - Physical exam Integumentary: no rash, no growths HEENT: Atraumatic Lungs: Normal air movement Breasts: deferred Heart: Regular rate Gastrointestinal: normal Female Genitourinary: deferred Rectal Exam: deferred Extremities: no No edema Neurological: Normal gait, Normal speech - Brief post op/procedure progress note Date of procedure: 08/28/19 Pre-op diagnosis: Celiac artery occlusion Post-op diagnosis: same Procedure: celiac artery angiogram Anesthesia: local Surgeon: SUZANNE RO Estimated blood loss: minimal Pathology: none Condition: stable - Disposition Condition at discharge: Good Disposition: DC-01 TO HOME OR SELFCARE Short Stay Discharge Plan Activity: advance as tolerated Weight Bearing Status: Weight Bear as Tolerated Diet: regular Wound: keep clean and dry, per your surgeon's advice Follow up with: MONTY DAI MD [Primary Care Provider] - 7 Days
[2019-08-28] MEDS ORDERED: LIDOCAINE (2%) 20 MG/1 ML VIAL 20 ML MDV INFILTRATI ONE (08:59)
[2019-08-28] MEDS ORDERED: VERAPAMIL 5 MG/2 ML INJ ONE (08:59)
[2019-08-28] MEDS ORDERED: HEPARIN 10,000 UNITS/10 ML VIAL ONE (08:59)
[2019-08-28] MEDS ORDERED: HEPARIN/NS 5000 UNIT/500ML 500 ML IR ONE (08:59)
[2019-08-28] MEDS ORDERED: MIDAZOLAM 2 MG/2 ML INJ ONE (09:00)
[2019-08-28] MEDS ORDERED: fentaNYL 100 MCG/2 ML INJ ONE (09:00)
--- NOTE | 2019-08-28 10:02 | Operative Report ---
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 Date: 08/28/2019 Procedure: Following an explanation of the risks, benefits and alternatives; written informed consent was obtained. The patient was brought to the angiographic suite and positioned in supine position on the examination table. Initial ultrasound evaluation of her right groin demonstrated a patent right common femoral artery. The patient's right groin was prepped and draped in the usual sterile fashion. 1% lidocaine was used for anesthesia. Under ultrasound guidance, the right common femoral artery was cannulated with a 7 cm 21 inch needle. A 0.018 guidewire was advanced centrally. The needle was removed and a micro-sheath placed. The 0.018 guidewire was exchanged for a 0.035 guidewire and the micro-sheath exchanged for a 5 [place] vascular sheath. A SOS 2 catheter was advanced over the guidewire and formed of the distal aorta. Selective cannulation of the celiac artery was performed with the catheter and imaging obtained with the catheter in both the proximal and distal celiac artery. 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 With the catheter in the distal celiac artery past the occlusion. There is prompt opacification of the splenic and hepatic arteries without significant aneurysmal dilatation. The guidewire was reinserted and the catheter then withdrawn. The catheter was removed. The sheath was removed and hemostasis achieved using an Angio-Seal arterial closure device. A sterile dressing was applied. The patient tolerated the procedure well. There were no immediate postprocedure complications. Conscious sedation was performed the guidance of radiologic nursing. Continuous cardiopulmonary monitoring was utilized. Impression: Celiac artery angiography with catheter positioned proximal and distal to the occluded segment. There appears to be extrinsic compression in the area of the occlusion secondary to the overlying diaphragmatic crura. Distally, there is only minimal aneurysmal dilatation with prompt opacification of the splenic and hepatic arteries. The patient will need referral to Dr. Ceasar Lopez [facility] [place] for laparoscopic release of the diaphragmatic crura followed by intervention with angioplasty and likely stenting of the celiac artery.
[2019-08-28 13:10] VITALS: BP 139/73
== END 2019-08-28 11:55 | disposition home or self-care (01) ==
LOC: CATHLABREC 06:07
PROVIDERS: ATTEND Radiology Diagnostic Radiology
DX: K55.1 Chronic vascular disorders of intestine (principal); I26.99 Other pulmonary embolism without acute cor pulmonale; E03.9 Hypothyroidism, unspecified; E66.01 Morbid (severe) obesity due to excess calories; I50.9 Heart failure, unspecified; Z88.8 Allergy status to other drugs, medicaments and biological substances; Z88.2 Allergy status to sulfonamides; Z79.899 Other long term (current) drug therapy; Z68.43 Body mass index [BMI] 50.0-59.9, adult; Z90.710 Acquired absence of both cervix and uterus; Z98.890 Other specified postprocedural states; Z90.49 Acquired absence of other specified parts of digestive tract
CPT/HCPCS: 36245; 36415; 75726; 76937; 80048; 85025; 85610; 85730; 99156; 99157; C1760; C1769; C1887; J1644; J2250; J3010; J7040; 36248; Q9967